=== PATIENT | female | born 1995 | race Caucasian/White ===

== ENCOUNTER 2020-04-16 17:16 | Emergency (ER) | payer SELFPAY ==
[2020-04-16 17:21] VITALS: BP 131/79; PULSE 74; RESP 18; TEMP 36.2; O2SAT 100
--- NOTE | 2020-04-16 17:47 | ED.ABDPAIN ---
HPI - Abdominal Pain General Chief Complaint: Skin/Abscess/Foreign Body <ZARINA Newton Last Filed: 04/16/20 17:52> Stated Complaint: lump on left breast <ZARINA Newton Last Filed: 04/16/20 17:52> Time Seen by Provider: 04/16/20 17:26 <ZARINA Newton Last Filed: 04/16/20 17:52> Source: patient <ZARINA Newton Last Filed: 04/16/20 17:52> Mode of arrival: ambulatory <ZARINA Newton Last Filed: 04/16/20 17:52> Limitations: no limitations <ZARINA Newton Filed: 04/16/20 17:52> History of Present Illness HPI narrative: Patient is a 24-year-old female who presents with 2 weeks duration of wound adjacent to the nipple of the left breast patient notes she had been able to get some pus out but had close backed up and notes that she has roughly. Grape size lesion adjacent to the nipple. Patient notes aching pain worse with palpation denies any fever chills nausea vomiting notes that she is not breast-feeding. Patient followed by Dr. Palafox <ZARINA Newton Last Filed: 04/16/20 17:52> Related Data Home Medications: Home Medications Medication Instructions Recorded Confirmed PNV cmb#95-ferrous fumarate-FA 1 tablet PO DAILY 11/26/19 [] <ZARINA Newton Last Filed: 04/16/20 17:52> Allergies/Adverse Reactions: Allergies Allergy/AdvReac Type Severity Reaction Status Date / Time Penicillins Allergy Mild Unknown Verified 11/26/19 14:16 <ZARINA Newton Last Filed: 04/16/20 17:52> Review of Systems Review of Systems: Narrative: CONSTITUTIONAL: Denies fever, chills, or sweats.. GASTROINTESTINAL: Denies nausea, vomiting SKIN: Positive for abscess MUSCULOSKELETAL: Denies back pain, joint pain, or myalgia. NEUROLOGIC: Denies dizziness, or weakness. <ZARINA Newton Last Filed: 04/16/20 17:52> [facility] Social History Social History: Social History Smoking status: Never smoker Alcohol intake: never Substance use: never Gender identity (if verbalized by the patient): Female <Jeff Short PA-C - Last Filed: 04/16/20 17:52> Exam Narrative: Exam Narrative: GENERAL: Well-appearing, well-nourished, and in no acute distress. HEAD: Normocephalic, atraumatic. EYES: PERRLA and EOMI. ENT: Nares clear, no rhinorrhea or epistaxis. Mucous membranes moist. EXTREMITIES: Normal range of motion. No edema. SKIN: Warm, dry, no rash. Small 1 cm abscess of the left breast at the areola next to the nipple no surrounding cellulitic changes no drainage NEURO: No focal deficits. Alert and oriented x3. Cranial nerves II through XII grossly intact PSYCH: Normal mood and affect. <Jeff Short PA-C - Last Filed: 04/16/20 17:52> Procedures Abscess I/D breast: Date of Incision: 04/16/20 <Jeff Short PA-C - Last Filed: 04/16/20 17:52> Time of Incision: 17:50 <ZARINA Newton Last Filed: 04/16/20 17:52> Side (if applicable): left <ZARINA Newton Last Filed: 04/16/20 17:52> Technique: other (18-gauge needle used to I&D lesion with single straight incision) <ZARINA Newton Last Filed: 04/16/20 17:52> Irrigation: No <ZARINA Newton Last Filed: 04/16/20 17:52> Packing used?: none <ZARINA Newton Last Filed: 04/16/20 17:52> I&D Results: Pus <ZARINA Newton Last Filed: 04/16/20 17:52> Course Vital Signs Vital signs: Vital Signs Temperature 97.2 F L 04/16/20 17:21 Pulse Rate 74 04/16/20 17:21 Respiratory Rate 18 04/16/20 17:21 Blood Pressure 131/79 04/16/20 17:21 Pulse Oximetry 100 04/16/20 17:21 Temperature 97.2 F L 04/16/20 17:21 Pulse Rate 74 04/16/20 17:21 Respiratory Rate 18 04/16/20 17:21 Blood Pressure 131/79 05
== END 2020-04-16 18:10 | disposition home or self-care (01) ==
PROVIDERS: Emergency Provider General Practice
DX: N61.1 Abscess of the breast and nipple (principal)
CPT/HCPCS: 10060; 99283

== ENCOUNTER 2020-06-07 18:06 | Emergency (ER) | payer SELFPAY ==
--- NOTE | ~2020-06-07 | CT_ITS ---
EXAMINATION: CT abdomen pelvis w con DATE: 06/07/2020 19:41 INDICATION: Left lower quadrant abdominal pain TECHNIQUE: Computed tomography (CT) of the abdomen and pelvis was performed with 100 cc Omnipaque 350 intravenous contrast. The dose-length product was 167.89 mGy-cm. Automated exposure control and iter ative reconstruction technique were employed. COMPARISON: CT dated 07/18/2016 FINDINGS: Lung bases are unremarkable. Heart size normal. No significant pleural or pericardial effus ion. The liver, spleen, pancreas, adrenal glands and right kidney are unremarkable. There is a 3 mm n onobstructing left renal stone. There is a low-density lesion in the left kidney measuring 59 Hounsfi eld units. Gallbladder is present. No significant vascular abnormality. Small amount of free fluid in the pelvis, likely physiologic. There is 1.3 cm corpus luteal cyst of the left ovary. There is fluid in the endometrium. Uterus is retroverted. Nonobstructive bowel gas pattern. No free air. L4 limbus vertebra, normal variant. No acute osseous abnormality. IMPRESSION: 1. 1.3 cm corpus luteal cyst of the left ovary with free fluid in the pelvis, likely physiologic. 2: Nonobstructing 3 mm left renal stone. 3: 1 cm low-density lesion left kidney, most likely complicated cyst. Recommend correlation with ult rasound on a nonemergent basis. Reviewed, dictated and finalized at location A. IMPRESSION: 1. 1.3 cm corpus luteal cyst of the left ovary with free fluid in the pelvis, l ikely physiologic. 2: Nonobstructing 3 mm left renal stone. 3: 1 cm low-density lesion left kidney, most likely complicated cyst. Recommen d correlation with ultrasound on a nonemergent basis.
[2020-06-07 18:12] VITALS: BP 120/68; PULSE 111; RESP 18; TEMP 37.7; O2SAT 99
--- NOTE | 2020-06-07 18:22 | ED.GENADULT ---
HPI - General Adult General Chief complaint: Abdominal Pain Stated complaint: left sided abd pain Time Seen by Provider: 06/07/20 18:09 Source: patient History of Present Illness HPI narrative: Patient is a 24 y/o female complaining of left lower abdominal pain for 3 days. She describes her pain as sharp and rates it as 8/10. There is some pain radiation to her left back. She took Ibuprofen which did not help. She denies any fever, chills, vomiting, diarrhea or dysuria. Related Data Home Medications Medication Instructions Recorded Confirmed No Home Medications 06/07/20 06/07/20 Allergies Allergy/AdvReac Type Severity Reaction Status Date / Time Penicillins Allergy Mild Unknown Verified 06/07/20 18:36 Review of Systems Constitutional: Constitutional: Denies chills, Denies fever(s), Denies headache(s) and Denies weakness Eyes: Eyes: Denies blurry vision ENT: Denies headache(s) and Denies neck pain Cardiovascular: Cardiovascular: Denies chest pain and Denies dyspnea Respiratory: Respiratory: Denies cough and Denies dyspnea Gastrointestinal: Gastrointestinal: Reports abdominal pain, Denies diarrhea, Denies nausea and Denies vomiting Genitourinary: Genitourinary: Denies hematuria and Denies dysuria Musculoskeletal: Musculoskeletal: Denies back pain and Denies neck pain Neurologic: Denies headache(s) and Denies weakness [facility] Social History Social History Smoking status: Never smoker Alcohol intake: never Substance use: never Gender identity (if verbalized by the patient): Female Exam Const: General: no acute distress and well developed Orientation/consciousness: oriented to person, oriented to place, oriented to time and patient oriented x3 HENMT: Head: normocephalic Ears: external ears normal General nose exam: Normal external nose present Eyes: General: appearance normal, both eyes and all related structures Conjunctivae: conjunctivae normal Neck: Neck: normal visual inspection and full ROM Chest: Chest palpation & inspection: normal inspection of the chest and no tenderness Resp: Effort & Inspection: normal respiratory effort Auscultation: clear to auscultation bilaterally Cardio: Rate: regular rate Rhythm: regular rhythm GI: GI Palp: No abdominal tenderness and Yes Soft to palpation Skin: General skin exam: normal color and turgor normal Neuro: General: oriented to person, oriented to place, oriented to time and patient oriented x3 Cognition (Neuro): normal cognition Extrem: General: normal to inspection, full ROM and no pedal edema Psych: Appearance: grossly normal Mental Status: mental status grossly normal Affect: normal affect Course Vital Signs Vital signs: Vital Signs Temperature 37.7 C H 06/07/20 18:12 Pulse Rate 111 H 06/07/20 18:12 Respiratory Rate 18 06/07/20 18:12 Blood Pressure 120/68 06/07/20 18:12 Pulse Oximetry 99 06/07/20 18:12 Temperature 37.7 C H 06/07/20 18:12 Pulse Rate 111 H 06/07/20 18:12 Respiratory Rate 18 06/07/20 18:12 Blood Pressure 120/68 06/07/20 18:12 Pulse Oximetry 99 06/07/20 18:12 Medical Decision Making Vital Signs Vital Signs: Vital Signs Temperature 37.7 C H 06/07/20 18:12 Pulse Rate 111 H 06/07/20 18:12 Respiratory Rate 18 06/07/20 18:12 Blood Pressure 120/68 06/07/20 18:12 Pulse Oximetry 99 06/07/20 18:12 Temperature 37.7 C H 06/07/20 18:12 Pulse Rate 111 H 06/07/20 18:12 Respiratory Rate 18 06/07/20 18:12 Blood Pressure 120/68 06/07/20 18:12 Pulse Oximetry 99 06/07/20 18:12 Lab Data Result diagrams: 06/07/20 18:34 06/07/20 18:34 Labs: Lab Results 06/07/20 06/07/20 06/07/20 Range/Units 18:34 18:34 18:34 WBC 11.4 H (4.5-10.0) K/mm3 RBC 4.32 (4.2-5.4) M/mm3 Hgb 12.4 (12.0-15.0) g/dL Hct 36.9 L (37.0-47.0) % MCV 85.4 (80-100) fl MCH 28
[2020-06-07 18:41] LABS: Basophils Percent Auto 0.3 % (0.2-1.2); Eosinophils Absolute Auto 0.1 K/mm3 (0-0.3); Eosinophils Percent Auto 0.7 % (0-4.4); Hematocrit 36.9 % (37.0-47.0); Hemoglobin 12.4 g/dL (12.0-15.0); Immature Granulocyte Absolute 0.03 K/mm3 (0.00-0.031); Immature Granulocyte Percent A 0.3 % (0-0.5); Lymphocytes Absolute Auto 1.45 K/mm3 (0.9-3.2); Lymphocytes Percent Auto 12.7 % (18.3-44.2); Mean Corpuscular HGB Conc 33.6 g/dl (32-36); Mean Corpuscular Hemoglobin 28.7 pg (26-34); Mean Corpuscular Volume 85.4 fl (80-100); Mean Platelet Volume 10.6 fl (7.4-10.4); Monocytes Percent Auto 9.1 % (2.6-8.5); Neutrophils Absolute Auto 8.8 K/mm3 (1.3-6.7); Neutrophils Percent Auto 76.9 % (45.5-73.1); Platelet Count Result 257 k/mm3 (150-375); Red Blood Count 4.32 M/mm3 (4.2-5.4); Red Cell Distribution Width 13.2 % (11.5-14.5); White Blood Count 11.4 K/mm3 (4.5-10.0)
[2020-06-07 18:52] LABS: Add Urine Microscopic? YES; Alanine Aminotransferase 13 U/L (4-35); Albumin Level 4.1 g/dL (3.5-5.1); Alkaline Phosphatase 72 U/L (38-126); Appearance Urine Cloudy (Clear); Aspartate Amino Transferase 21 U/L (14-36); Bacteria Urine Trace /hpf; Bilirubin Urine Negative (Negative); Bilirubin,Total 0.3 mg/dL (0.2-1.3); Blood Urea Nitrogen 17 mg/dL (7-17); Blood Urine 2+ (Negative); Calcium 8.4 mg/dL (8.4-10.2); Carbon Dioxide 24 mmol/L (22-30); Chloride 104 mmol/L (98-107); Color Urine Yellow (Yellow); Estimated CRCL calculation 61 ml/min; Estimated Glomerular Filt Rate > 60; Glucose 110 mg/dL (65-105); Glucose Urine UA Negative (Negative); Ketones Urine Negative (Negative); Leukocyte Esterase Ur 1+ LEU/UL (Negative); Lipase 53 U/L (23-300); Mucus Urine Rare /lpf; Nitrate Urine Negative (Negative); Potassium 3.4 mmol/L (3.4-5.0); Protein Urine 1+ mg/dL (Negative); Sodium 137 mmol/L (137-145); Squamous Epithelial Cell Urine Many /hpf (Few); WBC Urine 16-20 /hpf
--- NOTE | 2020-06-07 19:23 | PC.NURSE ---
Report to KEITH Mccray, to continue care.
[2020-06-07] MEDS: KETOROLAC 30 MG/ML VIAL (*BKC) (19:24)
== END 2020-06-07 20:39 | disposition home or self-care (01) ==
PROVIDERS: Emergency Medicine; Emergency Provider Emergency Medicine
DX: N83.202 Unspecified ovarian cyst, left side (principal)
CPT/HCPCS: 36415; 74177; 80053; 81001; 81025; 83690; 85025; 87077; 87086; 87088; 87186; 96374; 99284; J1885; Q9967

== ENCOUNTER 2020-11-22 10:32 | Emergency (ER) | payer SELFPAY ==
--- NOTE | 2020-11-22 10:34 | ED.URI ---
HPI - URI/Sore Throat General Chief Complaint: Upper Respiratory Infection Stated Complaint: hoarseness Time Seen by Provider: 11/22/20 10:42 Source: patient and RN notes reviewed Mode of arrival: ambulatory Limitations: no limitations History of Present Illness HPI Narrative: 25-year-old female presents with concern for 2-day history of hoarseness, sore throat, postnasal drainage, cough. She denies fever, chills, body aches, sweats, shortness of breath, loss of sense of taste or smell. Reports she has been using Chloraseptic spray, denies any other intervention. Reports she is a smoker. MD elicited complaint: sore throat Related Data Allergies Allergy/AdvReac Type Severity Reaction Status Date / Time Penicillins Allergy Mild Unknown Verified 06/07/20 18:36 Review of Systems Review of Systems: Narrative: CONSTITUTIONAL: Denies malaise, chills, sweats, or fever. EYES: Denies visual changes, redness, or discharge. ENT: Reports rhinorrhea, sore throat. Denies congestion, sinus pain, otalgia CARDIOVASCULAR: Denies chest pain, palpitations, or edema. RESPIRATORY: Reports cough. Denies dyspnea. GASTROINTESTINAL: Denies abdominal pain, nausea, vomiting, diarrhea SKIN: Denies rash or itching. MUSCULOSKELETAL: Denies myalgia. NEUROLOGIC: Denies headache. All systems reviewed & are unremarkable except as noted in HPI and below PMFSH Social History Social History Smoking status: Never smoker Alcohol intake: never Substance use: never Gender identity (if verbalized by the patient): Female Comments At time of signature, agree with nursing past medical, surgical, social and family history. There is no relevant family history pertinent to the presenting complaint Exam Narrative: Exam Narrative: GENERAL: Well-appearing, well-nourished, and in no acute distress. HEAD: Normocephalic EYES: PERRLA, conjunctivae clear ENT: Nares clear, turbinates erythematous, clear discharge. Mucous membranes moist. TM pearly hastings with dull light reflex bilaterally; no tragal tenderness. Oropharynx not erythematous without lesions. Tonsils not enlarged and without exudate, no drooling, no hoarseness, no trismus, uvula midline. NECK: Supple. No lymphadenopathy CHEST: Clear to auscultation, breath sounds equal. No wheezing, rhonchi, rales, or stridor. No respiratory distress, speaks in full sentences. HEART: Regular rate and rhythm. No murmur heard. SKIN: Warm, dry, no rash. NEURO: Alert and oriented x3. PSYCH: Normal mood and affect Course Course Emergency Course: Patient is aware of diagnosis, understands and agrees to treatment plan. Anticipatory guidance given. Patient agrees to follow-up as directed and is aware of reasons to seek care at the emergency department. Portions of this record may have been created with voice recognition software Vital Signs Vital signs: Vital Signs Temperature 98.7 F 11/22/20 10:43 Pulse Rate 79 11/22/20 10:43 Respiratory Rate 20 11/22/20 10:43 Blood Pressure 114/79 11/22/20 10:43 Pulse Oximetry 100 11/22/20 10:43 Temperature 98.7 F 11/22/20 10:43 Pulse Rate 79 11/22/20 10:43 Respiratory Rate 20 11/22/20 10:43 Blood Pressure 114/79 11/22/20 10:43 Pulse Oximetry 100 11/22/20 10:43 Reviewed. MDM - URI/Sore Throat MDM Narrative Medical decision making narrative: Differential diagnosis considered: Kramer virus, strep pharyngitis, allergic rhinitis, upper respiratory tract infection, sinusitis, rhinosinusitis, nasopharyngitis. viral pharyngitis, otitis media, otitis externa, pneumonia, bronchitis, viral cough syndrome, viral syndrome, and influenza. Exam findings show no acute concerns or changes; patient is non-toxic appearing and is in no distress. Patient is appropriate for outpatient treatment and follow-up. Lab Data Attestation: I reviewed the patient's lab results. Labs: Strep Screen Presumptive Ne
[2020-11-22 10:43] VITALS: BP 114/79; PULSE 79; RESP 20; TEMP 37.1; O2SAT 100
== END 2020-11-22 11:07 | disposition home or self-care (01) ==
PROVIDERS: Emergency Provider Nurse Practitioner
DX: B34.9 Viral infection, unspecified (principal); Z20.828 Contact with and (suspected) exposure to other viral communicable diseases
CPT/HCPCS: 87081; 87880; 99213; G0463

== ENCOUNTER 2020-11-24 06:50 | Outpatient (NON) | payer SELFPAY ==
[2020-11-24 18:45] LABS: SARS-CoV-2 RNA PCR Negative
== END 2020-11-24 06:51 ==
PROVIDERS: Visit Provider Nurse Practitioner
DX: Z20.828 Contact with and (suspected) exposure to other viral communicable diseases (principal); R09.89 Other specified symptoms and signs involving the circulatory and respiratory systems
CPT/HCPCS: 87635; C9803; U0003

== ENCOUNTER 2021-03-15 13:42 | Emergency (ER) | payer SELFPAY ==
--- NOTE | ~2021-03-15 | CT_ITS ---
EXAMINATION: CT abdomen pelvis w con DATE: 03/15/2021 16:22 INDICATION: Fever. Right flank pain. Hematuria. TECHNIQUE: Computed tomography (CT) of the abdomen and pelvis was performed with 85 mL Omnipaque 350 intravenous contrast. Automated exposure control and iterative reconstruction technique were employed . The dose-length product was 183.41 mGy-cm. COMPARISON: CT abdomen and pelvis 06/07/2020 FINDINGS: The visualized portions of the lung bases demonstrate a few nodules in left lower lobe thais uring up to 4 mm, likely benign. No pleural effusion. The heart size is normal. No pericardial effusi on. The liver, gallbladder, spleen, pancreas, and adrenal glands are normal. There is a 4 mm cyst in right kidney. There is a 2.1 cm hypoenhancing mass in right kidney mid zone medially. There is a 2 mm in left kidney. There are no dilated loops of bowel. The appendix is normal. There are no pathologic ally enlarged lymph nodes. There is no free intraperitoneal fluid. There is levocurvature of lumbar s pine. IMPRESSION: 1. 2.1 cm hypoenhancing right kidney mass, consistent with pyelonephritis. Reviewed, dictated and finalized at location B.
[2021-03-15 13:58] VITALS: BP 117/78; PULSE 140; RESP 18; TEMP 37.1; O2SAT 100
[2021-03-15 14:16] LABS: Basophils Percent Auto 0.2 % (0.2-1.2); Eosinophils Percent Auto 0.1 % (0-4.4); Hematocrit 42.8 % (37.0-47.0); Hemoglobin 14.4 g/dL (12.0-15.0); Immature Granulocyte Absolute 0.08 K/mm3 (0.00-0.031); Immature Granulocyte Percent A 0.5 % (0-0.5); Lymphocytes Absolute Auto 0.97 K/mm3 (0.9-3.2); Lymphocytes Percent Auto 5.9 % (18.3-44.2); Mean Corpuscular HGB Conc 33.6 g/dl (32-36); Mean Corpuscular Hemoglobin 29.4 pg (26-34); Mean Corpuscular Volume 87.5 fl (80-100); Mean Platelet Volume 9.5 fl (7.4-10.4); Monocytes Absolute Auto 1.4 K/mm3 (0.1-0.6); Monocytes Percent Auto 8.7 % (2.6-8.5); Neutrophils Absolute Auto 13.9 K/mm3 (1.3-6.7); Neutrophils Percent Auto 84.6 % (45.5-73.1); Platelet Count Result 297 k/mm3 (150-375); Red Blood Count 4.89 M/mm3 (4.2-5.4); Red Cell Distribution Width 13.4 % (11.5-14.5); White Blood Count 16.4 K/mm3 (4.5-10.0)
[2021-03-15 14:28] LABS: Alanine Aminotransferase 17 U/L (4-35); Albumin Level 4.8 g/dL (3.5-5.1); Alkaline Phosphatase 81 U/L (38-126); Anion Gap 8 mmol/L (8-16); Aspartate Amino Transferase 24 U/L (14-36); Bilirubin,Total 0.7 mg/dL (0.2-1.3); Blood Urea Nitrogen 12 mg/dL (7-17); Calcium 9.1 mg/dL (8.4-10.2); Carbon Dioxide 26 mmol/L (22-30); Chloride 98 mmol/L (98-107); Estimated CRCL calculation 62 ml/min; Estimated Glomerular Filt Rate > 60; Glucose 120 mg/dL (65-105); Lipase 37 U/L (23-300); Potassium 3.7 mmol/L (3.4-5.0); Sodium 132 mmol/L (137-145)
[2021-03-15 15:04] VITALS: BP 137/91; PULSE 110; RESP 18; O2SAT 100
--- NOTE | 2021-03-15 15:16 | PC.NURSE ---
Pt asked if she could give urine sample but states she is unable to go at this time.
--- NOTE | 2021-03-15 15:36 | ED.ABDPAIN ---
HPI - Abdominal Pain General Chief Complaint: Abdominal Pain Stated Complaint: abd pain/fever Time Seen by Provider: 03/15/21 15:13 Source: patient Mode of arrival: ambulatory Limitations: no limitations History of Present Illness HPI narrative: This is a 25 year old female that presents to the ER for right sided abdominal pain since yesterday. Associated with fevers. Is unsure if there is blood in the urine as she is currently on her cycle. Denies vomiting, diarrhea, or dysuria. Related Data Allergies Allergy/AdvReac Type Severity Reaction Status Date / Time Penicillins Allergy Mild Unknown Verified 06/07/20 18:36 Review of Systems Review of Systems: Narrative: CONSTITUTIONAL: Reports fever GASTROINTESTINAL: Reports abdominal pain. Denies nausea, vomiting, or diarrhea. GENITOURINARY: Denies dysuria or hematuria. All systems reviewed & are unremarkable except as noted in HPI and below PMFSH Social History Social History Smoking status: Never smoker Alcohol intake: never Substance use: never Gender identity (if verbalized by the patient): Female Exam Narrative: Exam Narrative: GENERAL: Well-appearing, well-nourished, and in no acute distress. HEAD: Normocephalic, atraumatic. EYES: EOMI. CHEST: Clear to auscultation. No respiratory distress. No wheezes rales or rhonchi HEART: Regular rate and rhythm. No murmur heard. Normal peripheral pulses. ABDOMEN: Soft, nondistended, normal active bowel sounds. Tender to palpation of the right lower quadrant, without guarding. No CVA tenderness EXTREMITIES: Normal range of motion. No edema. SKIN: Warm, dry, no rash. NEURO: No focal deficits. Alert and oriented x3. PSYCH: Normal mood and affect Course Vital Signs Vital signs: Vital Signs Temperature 98.7 F 03/15/21 13:58 Pulse Rate 140 H 03/15/21 13:58 Respiratory Rate 18 03/15/21 13:58 Blood Pressure 117/78 03/15/21 13:58 Pulse Oximetry 100 03/15/21 13:58 Temperature 98.7 F 03/15/21 13:58 Pulse Rate 78 03/15/21 17:46 Respiratory Rate 18 03/15/21 17:46 Blood Pressure 111/66 03/15/21 17:46 Pulse Oximetry 98 0419/21 17:46 MDM - Abdominal Pain MDM Narrative Medical decision making narrative: Patient presents to the emergency department for right flank pain since yesterday. She is afebrile and nontoxic-appearing. Tachycardic upon arrival, this normalized with IV fluid administration. CBC shows leukocytosis of 16.4. Metabolic panel without concerning findings. UA with evidence of infection. Bedside test is negative. CT scan of the abdomen and pelvis consistent with pyelonephritis. Patient given first dose of antibiotic IV. Reports she is feeling better would like to go home. Continued on oral antibiotics and instructed to follow-up with her primary. She was given warnings to return to the ER Lab Data Attestation: I reviewed the patient's lab results. Result diagrams: 03/15/21 14:07 03/15/21 14:07 Labs: Lab Results 03/15/21 03/15/21 03/15/21 Range/Units 14:07 14:07 15:44 WBC 16.4 H (4.5-10.0) K/mm3 RBC 4.89 (4.2-5.4) M/mm3 Hgb 14.4 (12.0-15.0) g/dL Hct 42.8 (37.0-47.0) % MCV 87.5 (80-100) fl MCH 29.4 (26-34) pg MCHC 33.6 (32-36) g/dl RDW 13.4 (11.5-14.5) % Plt Count 297 (150-375) k/mm3 MPV 9.5 (7.4-10.4) fl Immature Gran % (Auto) 0.5 (0-0.5) % Neut % (Auto) 84.6 H (45.5-73.1) % Lymph % (Auto) 5.9 L (18.3-44.2) % Davis % (Auto) 8.7 H (2.6-8.5) % Eos % (Auto) 0.1 (0-4.4) % Baso % (Auto) 0.2 (0.2-1.2) % Lymph # (Auto) 0.97 (0.9-3.2) K/mm3 Davis # (Auto) 1.4 H (0.1-0.6) K/mm3 Eos # (Auto) 0.0 (0-0.3) K/mm3 Baso # (Auto) 0.0 (0.0-0.1) K/mm3 Abs Immat Gran (auto) 0.08 H (0.00-0.031) K/mm3 Absolute Neuts (auto) 13.9 H (1.3-6.7) K/mm3 Absolute Nucleated RBC 0.0 (0.0-0.012) K
[2021-03-15 16:00] LABS: Add Urine Microscopic? YES; Appearance Urine Cloudy (Clear); Bacteria Urine Trace /hpf; Bilirubin Urine Negative (Negative); Blood Urine Negative (Negative); Color Urine Amber (Yellow); Glucose Urine UA Negative (Negative); Ketones Urine Negative (Negative); Leukocyte Esterase Ur Trace LEU/UL (Negative); Mucus Urine Heavy /lpf; Nitrate Urine Positive (Negative); Protein Urine 1+ mg/dL (Negative); Specific Grav Ur 1.021 (1.001-1.035); Squamous Epithelial Cell Urine Many /hpf (Few)
[2021-03-15] MEDS: SODIUM CHLORIDE 0.9% IV 1,000 ML 999 ML IV CONT ×2 (16:06→17:20)
[2021-03-15 16:07] VITALS: BP 119/82; PULSE 111; RESP 18; O2SAT 100
[2021-03-15 16:38] VITALS: BP 111/66; PULSE 119; RESP 20; O2SAT 100
--- NOTE | 2021-03-15 17:41 | PC.NURSE ---
This RN went in to check on pt and she was up out of bed unhooking her leads and states Im sorry i have to go, my repeater operator has to leave and i dont have anyone to watch my kids
[2021-03-15 17:46] VITALS: BP 111/66; PULSE 78; RESP 18; O2SAT 98
== END 2021-03-15 17:59 | disposition home or self-care (01) ==
PROVIDERS: Emergency Medicine; Emergency Provider Emergency Medicine; PCP Family Medicine
DX: N12 Tubulo-interstitial nephritis, not specified as acute or chronic (principal)
CPT/HCPCS: 36415; 74177; 80053; 81001; 81025; 83690; 85025; 87077; 87086; 87088; 87186; 96361; 96365; 96367; 99284; J0131; J1956; J7030; Q9967